=== PATIENT | male | born 1990 | race Caucasian/White ===

== ENCOUNTER 2024-03-09 04:07 | Emergency (ER) | payer SELFPAY ==
[~2024-03-09] VITALS: Ht 175.3 cm; Wt 97.5 kg
[2024-03-09 04:07] VITALS: BP 127/88; PULSE 92; RESP 18; TEMP 98; O2SAT 98
== END 2024-03-09 04:29 ==
LOC: MED 04:07
DX: Z02.89 Encounter for other administrative examinations (principal); Z65.3 Problems related to other legal circumstances; V49.88XA Car occupant (driver) (passenger) injured in other specified transport accidents, initial encounter; Y93.89 Activity, other specified; Y92.89 Other specified places as the place of occurrence of the external cause; Y99.8 Other external cause status
CPT/HCPCS: 99283